=== PATIENT | male | born 1985 | race African-American/Black ===

== ENCOUNTER 2021-02-01 15:18 | Emergency (ER) | payer MEDICAID ==
[~2021-02-01] VITALS: Ht 165.1 cm; Wt 138.4 kg
[2021-02-01 15:25] VITALS: BP 158/102
== END 2021-02-01 17:07 | disposition home or self-care (01) ==
LOC: ED 15:58
DX: S61.411D Laceration without foreign body of right hand, subsequent encounter (principal); X58.XXXD Exposure to other specified factors, subsequent encounter
CPT/HCPCS: 82962; 99283

== ENCOUNTER 2021-03-22 02:58 | Emergency (ER) | payer MEDICAID ==
[~2021-03-22] VITALS: Ht 165.1 cm; Wt 139.1 kg
[2021-03-22 03:04] VITALS: BP 152/88
--- NOTE | 2021-03-22 03:22 | NUR ---
INITIAL CONTACT WITH PT. PT HAS BEEN SEEN BY ABRAN.
--- NOTE | 2021-03-22 03:44 | NUR ---
PT DC'D HOME WITH RX X 1 AND UNDERSTANDING OF INSTRUCTIONS. PT TO DC DESK, GAIT STEADY.
== END 2021-03-22 03:51 | disposition home or self-care (01) ==
LOC: ED 03:49
DX: L03.113 Cellulitis of right upper limb (principal)
CPT/HCPCS: 99283